=== PATIENT | male | born 1985 | race Caucasian/White ===

== ENCOUNTER 2025-04-29 07:42 | Emergency (ER) | payer OTHER, SELFPAY ==
[2025-04-29 07:47] VITALS: BP 125/83
--- NOTE | 2025-04-29 08:31 | ED.GENMED ---
History of Present Illness
General
Chief Complaint: Musculo-Skeletal Complaint
Source: patient
Exam Limitations: none
Time Seen by Provider: 04/29/25 08:23
History of Present Illness
History of Present Illness:
39-year-old male hit in the left lateral foot by a hockey puck last evening. Currently wearing a cast boot of his . Minimal pain with weightbearing. No other injury or complaint
Past History
Past History
ED Past Medical History: None
ED Past Surgical History: Other ([place] teeth)
Social History
Tobacco: Non-smoker
Alcohol: None
Drug: None
Living: with family
Review of Systems
Review of Systems
All Other Systems: Not applicable
Phy Exam
Physical Exam
Physical Exam:
General: Nontoxic appearing in no distress
Skin: Warm and dry, no rash
Neuro: Alert, nontoxic, grossly nonfocal
Psychiatric: Good eye contact and appropriate
Musculoskeletal: Ecchymosis swelling left dorsal midfoot. Calf nontender. Achilles intact. Negative fifth metatarsal. No ankle tenderness. No open wound. Motor or sensory neurovascular intact
Course
Orders/Labs/Results
Orders:
Orders
04/29/25 07:51
CR Foot - Left Min 3 Views Urgent
Comment:
Reason For Exam: struck with hockey puck, swelling/pain
Vital Signs
Initial and Last Documented VS:
Initial Vital Signs
Temp Pulse Resp BP Pulse Ox
98.6 F 73 18 125/83 96
04/29/25 07:47 04/29/25 07:47 04/29/25 07:47 04/29/25 07:47 04/29/25 07:47
Last Documented Vital Signs
Temp Pulse Resp BP Pulse Ox
98.6 F 73 18 125/83 96
04/29/25 07:47 04/29/25 07:47 04/29/25 07:47 04/29/25 07:47 04/29/25 07:47
MDM/Problems Addressed
Differential Diagnosis Includes:
Foot contusion. Cannot rule out occult fracture. Discussed with patient. Discharged to follow-up
*Radiology
Radiology exam reviewed: radiology read reviewed (Negative)
*Pulse Oximetry
SaO2: 96
Oxygen Mode of Delivery: Room air
Patient hypoxic: no
*Critical Care Note
Total Time (30-74mins, 75-104mins- exclusive of procedures): Not Applicable
ED Attending Note
-
Portions of this chart may have been created with voice recognition software.� Occasional wrong word or��sound alike� substitutions may have occurred due to the inherent limitations of voice recognition software.
Discharge Plan
Departure
Patient Disposition: Home (Routine Discharge)
Date of Disposition: 04/29/25
Time of Disposition: 08:33
Patient with high blood pressure during this ER visit?: Yes
Discharge Problem:
Left foot contusion, Possible occult fracture
Instructions: Contusion (DC), BLOOD PRESSURE
Referrals:
Saul Doyle MD [Active, Orthopedics] - Follow up in 2-3 days
Activity Restrictions/Additional Instructions:
Use your 's cast boot
Elevate rest ice
Advil or Motrin for pain
Follow-up with orthopedics
Interventions
Interventions:
*Risk Screen - Suicide Last Done: 04/29/25 07:47
*General Assessment Last Done: 04/29/25 07:47
*Neglect/Abuse Screening Last Done: 04/29/25 07:47
*ED- Fall Risk Assessment Last Done: 04/29/25 07:47
*ED COVID-19 Vaccine History Last Done: 04/29/25 07:47
Discharge Date and Time
Print Language: [place]
== END 2025-04-29 09:38 | disposition home or self-care (01) ==
LOC: EMR 07:42
PROVIDERS: EMERGENCY PHYSICIAN Emergency Medicine; FAMILY PHYSICIAN Family Medicine
DX: S90.32XA Contusion of left foot, initial encounter (principal); M79.89 Other specified soft tissue disorders; W21.220A Struck by ice hockey puck, initial encounter; R03.0 Elevated blood-pressure reading, without diagnosis of hypertension; Z88.0 Allergy status to penicillin
CPT/HCPCS: 99283; 73630